=== PATIENT | male | born 1990 | race Caucasian/White ===

== ENCOUNTER 2019-12-10 16:10 | Emergency (ER) | payer SELFPAY ==
[~2019-12-10] VITALS: Ht 180.3 cm; Wt 95.3 kg
[~2019-12-10 16:10] MED LIST: 'PARAFON FORTE500 M1 PO; AMOXICILLIN500 M2 PO; AMOXICILLIN500 MG PO; BACTRIM DS 8001 TA1 PO; BACTROBAN CREAM15 GM PO; CEPHALEXIN500 M1 PO; HYDROCODONE BIT1 T11 PO; IBU800 MG PO; KEFLEX500 M1 PO; KEFLEX500 MG PO; LIDEX 0.05% GEL60 GM PO; MOTRIN800 MG PO; Motrin,Rufen800 MG PO; NAPROSYN500 MG PO; NKHM; PENICILLIN VK500 MG PO; PREDNICOT20 MG PO; PREDNISONE10 MG PO; PREDNISONE20 MG PO; Peridex 473 ML473 ML PO; TRAMADOL HCL50 MG PO
[2019-12-10] MEDS ORDERED: CLINDAMYCIN HC300 MG PO (17:10)
[2019-12-10] MEDS ORDERED: ANAPROX DS550 MG PO (17:10)
== END 2019-12-10 19:25 | disposition home or self-care (01) ==
LOC: ED 16:10
DX: K08.89 Other specified disorders of teeth and supporting structures (principal); K03.81 Cracked tooth; Z91.030 Bee allergy status; Z79.2 Long term (current) use of antibiotics

== ENCOUNTER 2024-05-09 11:08 | Emergency (ER) | payer SELFPAY ==
[~2024-05-09] VITALS: Ht 175.2 cm; Wt 95.3 kg
[~2024-05-09 11:08] MED LIST changes: +ANAPROX DS550 MG PO; +CLINDAMYCIN HC300 MG PO
[2024-05-09] MEDS ORDERED: Acetaminophen/Hydrocodone HP 10/325 PO ONE (11:40)
[2024-05-09] MEDS ORDERED: Amoxicillin/Clavulanate Pota 875 MG TAB PO ONE (11:40)
[2024-05-09] MEDS ORDERED: AMOX-CLAV 875-1 EACH PO (11:40)
[2024-05-09] MEDS ORDERED: HYDROCODONE-AC1 EACH PO (11:40)
[2024-05-09] MEDS ORDERED: Motrin,Rufen800 MG PO (17:17)
== END 2024-05-09 11:58 | disposition home or self-care (01) ==
LOC: ED 11:08
DX: K08.89 Other specified disorders of teeth and supporting structures (principal); K03.81 Cracked tooth; F17.210 Nicotine dependence, cigarettes, uncomplicated; Z91.030 Bee allergy status

== ENCOUNTER 2025-11-17 17:58 | Emergency (ER) | payer OTHER ==
[~2025-11-17] VITALS: Ht 175.2 cm; Wt 99.8 kg
[~2025-11-17 17:58] MED LIST changes: +AMOX-CLAV 875-1 EACH PO; +HYDROCODONE-AC1 EACH PO
[2025-11-17] MEDS ORDERED: AMOX-CLAV 875-1 EACH PO (18:30)
[2025-11-17] MEDS ORDERED: Amoxicillin/Clavulanate Pota 875 MG TAB PO ONE (18:30)
== END 2025-11-17 18:33 | disposition home or self-care (01) ==
LOC: ED 17:58
DX: K04.7 Periapical abscess without sinus (principal); Z91.030 Bee allergy status